=== PATIENT | female | born 1995 | race Caucasian/White ===

== ENCOUNTER 2017-07-04 22:12 | Emergency (ER) | payer MEDICAID ==
[~2017-07-04] VITALS: Ht 167.6 cm; Wt 61.2 kg
[2017-07-05 00:05] VITALS: BP 111/74
[2017-07-05] MEDS ORDERED: cefTRIAXone SODIUM 250 MG VL IM ONE (00:15)
[2017-07-05] MEDS ORDERED: AZITHROMYCIN 250 MG TAB PO ONE (00:15)
== END 2017-07-05 00:51 | disposition home or self-care (01) ==
LOC: ER 22:17
DX: R21 Rash and other nonspecific skin eruption (principal)
CPT/HCPCS: 96372; 99283; J0696

== ENCOUNTER 2019-07-13 12:27 | Emergency (ER) | payer MEDICAID ==
[~2019-07-13] VITALS: Ht 167.6 cm; Wt 68.0 kg
[2019-07-13 12:40] VITALS: BP 116/55
[2019-07-13 13:07] LABS: Urine Bacteria MANY /hpf (None Seen); Urine Blood Negative /uL (Negative); Urine Mucus FEW (None Seen); Urine Specific Gravity 1.018 (1.001-1.035); Urine WBC 4 /hpf (0 - 5)
== END 2019-07-13 14:47 | disposition home or self-care (01) ==
LOC: ER 12:30
DX: N30.00 Acute cystitis without hematuria (principal)
CPT/HCPCS: 81001; 81025